=== PATIENT | male | born 1950 | race Two or more races ===

== ENCOUNTER 2022-10-14 10:08 | Outpatient (CLI) | payer OTHER | END 2022-10-14 10:22 | disposition home or self-care (01) | LOC: MRI 10:08 | PROVIDERS: ATTEND Orthopaedic Surgery Orthopaedic Surgery of the Spine | DX: M48.062 Spinal stenosis, lumbar region with neurogenic claudication (principal) | CPT/HCPCS: 72148 ==

== ENCOUNTER 2022-10-31 10:18 | Outpatient (CLI) | payer OTHER | END 2022-10-31 10:27 | disposition home or self-care (01) | LOC: MRI 10:18 | PROVIDERS: ATTEND Orthopaedic Surgery Orthopaedic Surgery of the Spine | DX: M48.04 Spinal stenosis, thoracic region (principal) | CPT/HCPCS: 72146 ==